=== PATIENT | male | born 1945 | race Caucasian/White ===

== ENCOUNTER 2019-08-16 10:39 | Emergency (ER) | payer MEDICARE, OTHER ==
[~2019-08-16] VITALS: Ht 170.2 cm; Wt 61.0 kg
[2019-08-16] MEDS ORDERED: DILTIAZEM 5 MG/ML, 5ML IVPush ONE (11:00)
--- NOTE | 2019-08-16 11:01 | NUR ---
PATIENT BROUGHT BACK FROM TRIAGE WITH RAPID IRREGULAR HEART RATE STARTING LAST NIGHT.
--- NOTE | 2019-08-16 11:02 | NUR ---
PATIENT DENIES CP, N/V, SOB. THE PATIENT IS ALERT ORIENTED, WARM AND DRY. FAMILY AT BESIDE.
--- NOTE | 2019-08-16 11:15 | NUR ---
WHILE AT BEDSIDE PATIENTS HR CONVERTED WITHOUT INTERVENTION TO NSR.
[2019-08-16 11:16] LABS: BASOPHILS # (AUTO) 0.07 x10^3/uL (0-0.1); BASOPHILS % (AUTO) 1 % (0-1); EOSINOPHILS # (AUTO) 0.21 x10^3/uL (0-0.4); EOSINOPHILS % (AUTO) 3 % (1-7); LYMPHOCYTES # (AUTO) 1.38 x10^3/uL (1-3.4); LYMPHOCYTES % (AUTO) 20 % (22-44); MD NO; MEAN CORPUSCULAR HEMOGLOBIN 32.2 pg (27.5-34.5); MEAN CORPUSCULAR HGB CONC 33.4 g/dL (33.2-36.2); MEAN CORPUSCULAR VOLUME 96.3 fL (81-97); MEAN PLATELET VOLUME 8.9 fL (7.4-10.4); MONOCYTES # (AUTO) 0.75 x10^3/uL (0.2-0.8); MONOCYTES % (AUTO) 11 % (2-9); NEUTROPHILS # (AUTO) 4.33 x10^3/uL (1.8-6.8); NEUTROPHILS % (AUTO) 64 % (42-75); PLATELET COUNT 178 x10^3/uL (130-400); RED BLOOD COUNT 5.14 x10^6/uL (4.38-5.82); RED CELL DISTRIBUTION WIDTH 14.2 % (9.4-14.8)
[2019-08-16 11:24] LABS: ALANINE AMINOTRANSFERASE 35 U/L (12-78); ALBUMIN 3.5 g/dL (3.4-5.0); ANION GAP 5 mmol/L (5-15); CALCIUM 8.7 mg/dL (8.5-10.1); CHLORIDE 107 mmol/L (98-107); CREATININE 0.94 mg/dL (0.7-1.3)
[2019-08-16 11:29] LABS: ALKALINE PHOSPHATASE 89 U/L (45-117); BILIRUBIN,TOTAL 0.7 mg/dL (0.2-1.0); TOTAL PROTEIN 6.8 g/dL (6.4-8.2); TROPONIN I < 0.015 ng/mL (0.000-0.045)
--- NOTE | 2019-08-16 12:24 | NUR ---
STEADY AMBULATION UP TO BATHROOM
--- NOTE | 2019-08-16 12:40 | NUR ---
ECG TECH AT BEDSIDE. PATIENT NEEDS TO BE D/C THEN READMITTED OUTPATIENT.
[2019-08-16 12:47] LABS: FREE T4 (FREE THYROXINE) 1.12 ng/dL (0.76-1.46)
--- NOTE | 2019-08-16 13:04 | NUR ---
DISCHARGE PLAN REVIEWED. NO QUESTIONSO AT THIS TIME.
[2019-08-16 13:12] VITALS: BP 110/71
== END 2019-08-16 13:19 | disposition home or self-care (01) ==
LOC: ED 13:10
DX: I49.9 Cardiac arrhythmia, unspecified (principal); I48.92 Unspecified atrial flutter
CPT/HCPCS: 36415; 71045; 80053; 83880; 84439; 84443; 84484; 85025; 93005; 99284